=== PATIENT | female | born 1985 | race Caucasian/White ===

== ENCOUNTER → 2023-06-11 | Emergency (ER) | payer OTHER ==
--- OUTSIDE RECORDS SUMMARY | 2023-06-11 18:18 | XMS REPORT | Continuity of Care Document ---
Author Name Unknown Address [address] [facility] [address]. [address] [place] [address] [facility] Address [address] [facility]. 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 Name Role Phone Unavailable Unavailable Unavailable Encounters Start Date/Time End Date/Time Encounter Type Admission Type Attending Clinicians [facility] Facility Care Department Encounter ID Source 2022-12-30 11:13:03 2022-12-30 11:13:03 Outpatient [facility] [id number] Levi Alarcon 2022-12-17 16:03:11 2022-12-17 16:03:11 Outpatient [facility] [id number] Levi Alarcon 2022-11-17 09:11:36 2022-11-17 09:11:36 Outpatient [facility] [id number] Levi Alarcon 2022-07-30 14:00:14 2022-07-30 14:00:14 Outpatient [facility] [id number] Levi Alarcon 2022-06-11 15:17:38 2022-06-11 15:17:38 Outpatient [facility] 7 Levi Alarcon 2022-04-30 10:31:35 2022-04-30 10:31:35 Outpatient [facility] [id number] Levi Alarcon Results Test Description Test Time Test Comments Results Result Co mments Source VAGINAL PATHOGENS DNA [id number] 15:17:54* Test Item Value Reference Range Interpretation Comme nts PHUONG SPECIES (test code = ) NEGATIVE NEGATIVE G. VAGINALIS (test code = ) POSITIVE NEGATIVE A T. VAGINALIS (test code = ) NEGATIVE NEGATIVE Note: The [employer] Aff irm VPIII Microbial Identification Testis a DNA probe test intended for use in the detectionand identification of Phuong species, Gardnerellavaginalis and Trichomonas vaginalis nucleic acid. CT/NG, NAAT, [id number] 14:04:14* Test Item Value Reference Range Interpretation Comme nts CHLAMYDIA, NAAT, URINE (test code = 00964) NEGATIVE NEGATIVE Testing is perfo rmed with Edith APURVA 6800/8800 systems usingreal-time polymerase chain reaction (PCR) method. A negative result does not exclude low level infection, specimensampling error, or collection error. GONORRHEA, NAAT, URINE (test code = 30931) NEGATIVE NEGATIVE Testing is perfo rmed with Edith APURVA 6800/8800 systems usingreal-time polymerase chain reaction (PCR) method. A negative result does not exclude low level infection, specimensampling error, or collection error. HIV 1/2 4TH GEN, RFLX [id number] 06:46:13* Test Item Value Reference Range Interpretation Comme nts HIV 1/2 4TH GEN, RFLX CONF ( test code = 3514) NON-REACTIVE NON-REACTIVE HEPATITIS PANEL, [id number] 06:46:13* Test Item Value Reference Range Interpretation Comments HEPATITIS A TOTAL AB (test code = 2725) REACTIVE NON-REACTIVE A HEPATITIS B SURF AG (test code = 2739) NON-REACTIVE NON-REACTIVE HEP B CORE TOTAL AB (test code = 2729) NON-REACTIVE NON-REACTIVE HEPATITIS B SURFACE AB (test code = 2737) NON-REACTIVE NON-REACTIVE HEPATITIS C ANTIBODY (test code = 4675) NON-REACTIVE NON-REACTIVE INTERPRETATION HEPATITIS A: (test code = 2552) (NOTE) Hepatitis A sero logy consistent with past exposure or previousvaccination to hepatitis A virus. No evidence of current acutehepatitis A infection. INTERPRETATION HEPATITIS B: (test code = 39974) (NOTE) Hepatitis B sero logy shows no evidence of past exposure to orcurrent infection with hepatitis B virus. No evidence of hepatitis Bimmunization is identified. INTERPRETATION HEPATITIS C: (test code = 48528) (NOTE) Hepatitis C sero logy shows no evidence of exposure to hepatitisC virus at this time. It can take up to 12 months after exposure tothe hepatitis C virus for antibodies to become detectable in the blood in certain patients. HEPATITIS A [id number] 06:46:13* Test Item Value Reference Range Interpretation Comme nts HEPATITIS A IgM (test code = 2728) NON-REACTIVE NON-REACTIVE UNLESS OTHERW ISE INDICATED, ALL TESTING PERFORMED AT [facility] [address] [place] [address] THERMAL SPRAY OPERATOR: DIEGO PATEL M.D. CLIA NUMBER [id number] [place]. [id number] RPR REFLEX TO T. PALLIDUM - [id number] 05:20:47* Test Item Value Reference Range Interpretation Comme nts RPR (test code = 30147) NON-REACTIVE NON-REACTIVE RPR TITER (test code = 3500) NOT INDIC. TITER NOT INDIC. TSH, THIRD [id number] 09:19:01* Test Item Value Reference Range Interpretation Comme nts TSH, THIRD GENERATION (test code = 2821) 2.640 UIU/ML 0.400-4.100 UNLESS OTHERWISE INDICATED, [facility]FOR[facility]. [address] [place] [address] THERMAL SPRAY OPERATOR: SAMANTHA MEZA M.D. CLIA NUMBER [id number] [place]. [id number] HEMOGLOBIN [id number] 04:56:52* Test Item Value Reference Range Interpretation Comme nts HEMOGLOBIN A1c (test code = 57086) 5.6 % 4.2-5.6 LIPID [id number] 04:05:00* Test Item Value Reference Range Interpretation Comme nts CHOLESTEROL (test code = 2210) 270 MG/DL <200 H TRIGLYCERIDES (test code = 2232) 192 MG/DL <150 H HDL CHOLESTEROL (test code = 2220) 47 MG/DL >39 CALC LDL CHOL (test code = 2237) 186 MG/DL <100 H NOTE: CALCULATED LDL IS BASED ON CHRISTINA-GARCIA METHOD WHICHINCLUDES ADJUSTABLE TRIGLYCERIDE:VLDL CHOLESTEROL RATIO.THIS FACTOR VARIES BY MEASURED TRIGLYCERIDE AND NON-HDLCHOLESTEROL CONCENTRATIONS WITH INCREASED CALCULATED LDL SEENIN HIGHER TRIGLYCERIDE OR LOWER NON-HDL SPECIMENS. FOR MOREINFORMATION, SEE CLIENT ANNOUNCEMENT AT [email or web address] RISK RATIO LDL/HDL (test code = 2238) 3.96 RATIO <3.22 H COMPREHENSIVE METABOLIC [id number] 04:05:00* Test Item Value Reference Range Interpretation Comme nts GLUCOSE (test code = 2216) 82 MG/DL 70-99 BUN (test code = 2207) 12 MG/DL 6-20 CREATININE (test code = 2213) 0.58 MG/DL 0.60-1.30 L eGFR (2020 CKD-EPI) (test code = ) 121 ML/MIN/1.73 >60 CALC BUN/CREAT (test code = 2234) 21 RATIO 6-28 SODIUM (test code = 2230) 139 MEQ/L 133-146 POTASSIUM (test code = 2227) 4.4 MEQ/L 3.5-5.4 CHLORIDE (test code = 2214) 102 MEQ/L 95-107 CARBON DIOXIDE (test code = 2205) 25 MEQ/L 19-31 CALCIUM (test code = 2208) 9.3 MG/DL 8.5-10.5 PROTEIN, TOTAL (test code = 2228) 7.0 G/DL 6.1-8.3 ALBUMIN (test code = 2200) 4.7 G/DL 3.5-5.2 CALC GLOBULIN (test code = 2239) 2.3 G/DL 1.9-3.7 CALC A/G RATIO (test code = 2233) 2.0 RATIO 1.0-2.6 BILIRUBIN, TOTAL (test code = 2206) 0.3 MG/DL See_Comment [Automated me ssage] The system which generated this result transmitted reference range: <=1.2. The reference range was not used to interpret this result as normal/abnormal. ALKALINE PHOSPHATASE (test code = 2203) 59 U/L 40-114 AST (test code = 2217) 21 U/L 9-40 ALT (test code = 2218) 16 U/L 5-40 CBC W/AUTO DIFF WITH [id number] 03:47:46* Test Item Value Reference Range Interpretation Comme nts WBC (test code = 1001) 6.3 K/UL 3.5-11.0 RBC (test code = 1002) 4.54 M/UL 3.80-5.40 HEMOGLOBIN (test code = 1003) 12.7 G/DL 11.5-15.5 HEMATOCRIT (test code = 1004) 38.0 % 34.0-45.0 MCV (test code = 1005) 83.7 fL 80.0-99.0 MCH (test code = 1006) 28.0 PG 25.0-33.0 MCHC (test code = 1007) 33.4 G/DL 31.0-36.0 RDW (test code = 1038) 15.3 % 11.5-15.0 H NEUTROPHILS (test code = 1008) 50.3 % LYMPHOCYTES (test code = 1010) 33.3 % MONOCYTES (test code = 1011) 12.1 % EOSINOPHILS (test code = 1012) 3.0 % BASOPHILS (test code = 1013) 1.0 % IMMATURE GRANULOCYTES (test code = 1036) 0.3 % NUCLEATED RBCS (test code = 1065) 0.0 /100 WBC'S See_Comment [Automated [employer] ge] The system which generated this result transmitted reference range: 0.0. The reference range was not used to interpret this result as normal/abnormal. PLATELET COUNT (test code = 1015) 243 K/UL 130-400 ABSOLUTE NEUTROPHILS (test code = 1066) 3.16 K/UL 1.50-7.50 ABSOLUTE LYMPHOCYTES (test code = 1067) 2.09 K/UL 1.00-4.00 ABSOLUTE MONOCYTES (test code = 1068) 0.76 K/UL 0.20-1.00 ABSOLUTE EOSINOPHILS (test code = 1040) 0.19 K/UL 0.00-0.50 ABSOLUTE BASOPHILS (test code = 1069) 0.06 K/UL 0.00-0.20 ABS IMMATURE GRANULOCYTES (test code = 1020) 0.02 K/UL 0.00-0.10 ABS NUCLEATED RBCS (test code = 92726) 0.00 K/UL 0.00-0.11
--- NOTE | 2023-06-11 19:31 | RAD REPORT ---
EXAM DESCRIPTION: RAD - Shoulder Left 2 View - 06/11/2023 7:21 pm CLINICAL HISTORY: PAIN COMPARISON: No comparisons FINDINGS/IMPRESSION: No acute fracture. No malalignment. No significant focal degenerative changes. Possible intra-articular body overlying the lower joint space.
--- NOTE | 2023-06-11 19:32 | RAD REPORT ---
EXAM DESCRIPTION: RAD - Ribs Left - 06/11/2023 7:21 pm CLINICAL HISTORY: PAIN COMPARISON: No comparisons FINDINGS/IMPRESSION: No displaced left-sided rib fractures identified. Nondisplaced rib fractures ma y not be apparent on initial radiography. No pneumothorax.
--- NOTE | 2023-06-11 19:33 | RAD REPORT ---
EXAM DESCRIPTION: RAD - Hand Right 3 View - 06/11/2023 7:21 pm CLINICAL HISTORY: PAIN COMPARISON: No comparisons FINDINGS/IMPRESSION: No acute fracture. No malalignment. No significant focal degenerative changes.
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
[2023-06-11 20:36] VITALS: BP 118/87; O2SAT 100
== END ==
LOC: ER 18:15
DX: M25.512 Pain in left shoulder (principal); M25.552 Pain in left hip; S60.511A Abrasion of right hand, initial encounter; F17.210 Nicotine dependence, cigarettes, uncomplicated; Z88.1 Allergy status to other antibiotic agents; Z88.2 Allergy status to sulfonamides; Z91.013 Allergy to seafood; Z91.040 Latex allergy status; Z91.048 Other nonmedicinal substance allergy status
CPT/HCPCS: 99282

== ENCOUNTER 2023-12-08 10:52 | Emergency (ER) | payer SELFPAY ==
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
[2023-12-08 11:40] LABS: RPR Titer ND
[2023-12-08 11:43] VITALS: TEMP 98.7; O2SAT 100
[2023-12-08 11:45] VITALS: BP 122/86
[2023-12-08 13:43] LABS: HBsAG Nonreactive Report Report; Hepatitis B Core IgM Nonreactive (Nonreactive); Hepatitis B surface AG Interp. Nonreactive (Nonreactive); Hepatitis C Virus Ab Nonreactive (Nonreactive)
[2023-12-09 06:29] LABS: RPR (Rapid Plasma Reagin) NON-REACT (NON-REACT)
--- OUTSIDE RECORDS SUMMARY | 2023-12-09 09:39 | XMS REPORT | Continuity of Care Document ---
Author Name Unknown Address [address] [place] [address] [facility] thconnect Address 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 Name Role Phone Unavailable Unavailable Unavailable Encounters Start Date/Time End Date/Time Encounter Type Admission Type Attending Clinicians Care Facility Care Department Encounter ID Source 2023-08-29 11:33:24 2023-08-29 11:33:24 Outpatient [facility] [id number]con 2022-12-30 11:13:03 2022-12-30 11:13:03 Outpatient [facility] [id number] Levi Alarcon 2022-12-17 16:03:11 2022-12-17 16:03:11 Outpatient [facility] [id number] Alarcon 2022-11-17 09:11:36 2022-11-17 09:11:36 Outpatient [facility] [id number] [address] Alarcon 2022-07-30 14:00:14 2022-07-30 14:00:14 Outpatient [facility] [id number] Levi Alarcon 2022-06-11 15:17:38 2022-06-11 15:17:38 Outpatient [facility] [id number] Levi Alarcon 2022-04-30 10:31:35 2022-04-30 10:31:35 Outpatient [facility] [id number] [address] Alracon Results Test Description Test Time Test Comments Results Result Co mments Source VAGINAL PATHOGENS DNA [id number] 15:17:54* Test Item Value Reference Range Interpretation Comme nts PHUONG SPECIES (test code = 62430) NEGATIVE NEGATIVE G. VAGINALIS (test code = 60303) POSITIVE NEGATIVE A T. VAGINALIS (test code = 14721) NEGATIVE NEGATIVE Note: The [facility] ir VPIII Microbial Identification Testis a DNA probe test intended for use in the detectionand identification of Phuong species, Gardnerellavaginalis and Trichomonas vaginalis nucleic acid. CT/NG, NAAT, [id number] 14:04:14* Test Item Value Reference Range Interpretation Comme nts CHLAMYDIA, NAAT, URINE (test code = 99528) NEGATIVE NEGATIVE Testing is perfo rmed with Edith APURVA 6800/8800 systems usingreal-time polymerase chain reaction (PCR) method. A negative result does not exclude low level infection, specimensampling error, or collection error. GONORRHEA, NAAT, URINE (test code = 10617) NEGATIVE NEGATIVE Testing is perfo rmed with Edith APURVA 6800/8800 systems usingreal-time polymerase chain reaction (PCR) method. A negative result does not exclude low level infection, specimensampling error, or collection error. HIV 1/2 4TH GEN, RFLX [id number] 06:46:13* Test Item Value Reference Range Interpretation Comme nts HIV 1/2 4TH GEN, RFLX CONF ( test code = 3514) NON-REACTIVE NON-REACTIVE HEPATITIS PANEL, [id number] 06:46:13* Test Item Value Reference Range Interpretation [...] infection. INTERPRETATION HEPATITIS B: (test code = 45724) (NOTE) Hepatitis B sero logy shows no evidence of past exposure to orcurrent infection with hepatitis B virus. No evidence of hepatitis Bimmunization is identified. INTERPRETATION HEPATITIS C: (test code = 80568) (NOTE) Hepatitis C sero logy shows no evidence of exposure to hepatitisC virus at this time. It can take up to 12 months after exposure tothe hepatitis C virus for antibodies to become detectable in the blood in certain patients. HEPATITIS A [id number] 06:46:13* Test Item Value Reference Range Interpretation Comme nts HEPATITIS A IgM (test code = 2728) NON-REACTIVE NON-REACTIVE UNLESS OTHERW ISE INDICATED, ALL TESTING PERFORMED AT [facility] [address] [place] [address] MACHINE DESIGN CHECKER: DIEGO PATEL M.D. CLIA NUMBER [id number] [place]. [id number] RPR REFLEX TO T. PALLIDUM - [id number] 05:20:47* Test Item Value Reference Range Interpretation Comme nts RPR (test code = 11106) NON-REACTIVE NON-REACTIVE RPR TITER (test code = 3500) NOT INDIC. TITER NOT INDIC. TSH, THIRD [id number] 09:19:01* Test Item Value Reference Range Interpretation Comme [facility] TSH, THIRD GENERATION (test code = 2821) 2.640 UIU/ML 0.400-4.100 UNLESS OTHERWISE INDICATED, [facility] [address] [place] [address] MACHINE DESIGN CHECKER: SAMANTHA MEZA M.D. CLIA NUMBER [id number] [place]. [id number] HEMOGLOBIN [id number] 04:56:52* Test Item Value Reference Range Interpretation Comme [facility] HEMOGLOBIN A1c (test code = 07237) 5.6 % 4.2-5.6 LIPID [id number] 04:05:00* Test Item Value Reference Range Interpretation [...] SPECIMENS. FOR MOREINFORMATION, SEE CLIENT ANNOUNCEMENT AT [email or web address] RATIO LDL/HDL (test code = 2237) 3.96 RATIO <3.22 H COMPREHENSIVE METABOLIC [id number] 04:05:00* Test Item Value Reference Range Interpretation Comme nts GLUCOSE (test code = 2216) 82 MG/DL 70-99 BUN (test code = 2207) 12 MG/DL 6-20 CREATININE (test code = 2213) 0.58 MG/DL 0.60-1.30 L eGFR (2020 CKD-EPI) (test code = 94737) 121 ML/MIN/1.73 >60 CALC BUN/CREAT (test code [...] G/DL 3.5-5.2 CALC GLOBULIN (test code = 2240) 2.3 G/DL 1.9-3.7 CALC A/G RATIO (test code = 2233) 2.0 RATIO 1.0-2.6 BILIRUBIN, TOTAL (test code = 2206) 0.3 MG/DL See_Comment [Automated me ssage] The system which generated this result transmitted reference range: <=1.2. The reference range was not used to interpret this result as normal/abnormal. ALKALINE PHOSPHATASE (test code = 2203) 59 U/L 40-114 AST (test code = 8) 21 U/L 9-40 ALT (test code = 2219) 16 U/L 5-40 CBC W/AUTO DIFF WITH [id number] 03:47:46* Test Item Value Reference Range Interpretation [...] = 1065) 0.0 /100 WBC'S See_Comment [Automated [employer] ge] The system which generated this result [...] 0.00-0.10 ABS NUCLEATED RBCS (test code = 68604) 0.00 K/UL 0.00-0.11
== END 2023-12-08 11:39 | disposition home or self-care (01) ==
LOC: ER 10:52
DX: Z20.2 Contact with and (suspected) exposure to infections with a predominantly sexual mode of transmission (principal); F17.210 Nicotine dependence, cigarettes, uncomplicated; Z88.2 Allergy status to sulfonamides; Z88.8 Allergy status to other drugs, medicaments and biological substances; Z91.040 Latex allergy status; Z91.013 Allergy to seafood
CPT/HCPCS: 36415; 80074; 86592; 87389; 99283